=== PATIENT | female | born 1935 | race Caucasian/White ===

== ENCOUNTER → 2020-09-21 | Outpatient (CLI) | payer MEDICARE, BC ==
[2020-09-21 11:28] LABS: HEMOGLOBIN 14.5 g/dL (12.5-16.0); MEAN CELL VOLUME 98 fl (78-100); MEAN CORPUSCULAR HEMOGLOBIN 34 pg (27-31); MEAN CORPUSCULAR HGB CONC 35 g/dL (33-37); MEAN PLATELET VOLUME 9.5 fl (7.4-10.4); PLATELET COUNT 236 K/mm3 (130-400); RED CELL DISTRIBUTION WIDTH 12.5 % (11.5-14.5); WHITE BLOOD COUNT 4.2 K/mm3 (4.8-10.8)
[2020-09-21 11:36] LABS: POTASSIUM 3.5 mmol/L (3.5-5.1)
[2020-09-21 11:38] LABS: CALCIUM 9.3 mg/dL (8.3-10.5)
[2020-09-21 11:39] LABS: TOTAL PROTEIN 6.4 g/dL (6.2-8.1)
[2020-09-21 11:41] LABS: TOTAL BILIRUBIN 0.5 mg/dL (0.2-1.2)
[2020-09-21 12:50] LABS: LYMPHOCYTE 17 % (20-51); MONOCYTE 13 % (3-10); NEUTROPHILS 68 % (42-75)
== END ==
LOC: LAB 10:53 → VAS 10:53
PROVIDERS: Internal Medicine
DX: C82.13 Follicular lymphoma grade II, intra-abdominal lymph nodes (principal); M79.604 Pain in right leg